=== PATIENT | female | born 1945 | race African-American/Black ===

== ENCOUNTER → 2017-12-03 | Outpatient (CLI) | payer MEDICARE, BC | END | disposition home or self-care (01) | LOC: NM 07:33 | DX: Z96.652 Presence of left artificial knee joint (principal); M54.9 Dorsalgia, unspecified | CPT/HCPCS: 72148; 78315; 96374; A9503 ==

== ENCOUNTER → 2018-06-23 | Outpatient (CLI) | payer MEDICARE, BC ==
[2018-06-03 15:00] VITALS: BP 135/75
[~2018-06-23] MED LIST: AMLO1CAP6 PO; ASPI325T11 PO; CELE200C PO; FERR325T14 PO; HYDR-2758 PO; HYDR-2762 PO; HYDR-971 PO; Hydrocodone/Acetaminophen PO; ONDA4TAB10 SL; OXYC-323 PO; TRAM50TA PO; WARF3TAB50 PO; Warfarin Sodium MC
--- NOTE | 2018-06-23 11:12 | RAD ---
EXAM: Chest, 2 views. HISTORY: Shortness of breath. COMPARISON: 06/02/2018 FINDINGS: Frontal and lateral views of the chest are obtained. There is stable diffuse increased interstitial opacity. There is no consolidation, pleural effusion or pneumothorax. There is stable cardiomegaly. IMPRESSION: Stable diffuse increased interstitial opacity suggesting trace interstitial infiltrate. Electronically signed by: Alla [place] MD (06/23/2018 11:08 AM) [place] [id number]
== END | disposition home or self-care (01) ==
LOC: RAD 10:40
PROVIDERS: ATTEND Family Medicine
DX: R91.8 Other nonspecific abnormal finding of lung field (principal); E66.01 Morbid (severe) obesity due to excess calories; I10 Essential (primary) hypertension; E78.00 Pure hypercholesterolemia, unspecified; Z86.73 Personal history of transient ischemic attack (TIA), and cerebral infarction without residual deficits; Z96.653 Presence of artificial knee joint, bilateral; Z87.11 Personal history of peptic ulcer disease; Z90.710 Acquired absence of both cervix and uterus; Z68.38 Body mass index [BMI] 38.0-38.9, adult; Z88.8 Allergy status to other drugs, medicaments and biological substances; Z88.5 Allergy status to narcotic agent; Z82.49 Family history of ischemic heart disease and other diseases of the circulatory system; Z80.0 Family history of malignant neoplasm of digestive organs
CPT/HCPCS: 71046

== ENCOUNTER 2018-12-19 06:34 | Emergency (ER) | payer MEDICARE, BC ==
[~2018-12-19] VITALS: Ht 165.1 cm; Wt 104.3 kg
[~2018-12-19 06:34] MED LIST changes: -HYDR-2758 PO; +HYDR-2761 PO; -HYDR-2762 PO; +HYDR-2765 PO; +HYDR-3164 PO; -HYDR-971 PO; -OXYC-323 PO; +OXYC1TAB15 PO
--- NOTE | 2018-12-19 07:03 | PHYS DOC ---
Past Medical History Past Medical History: Hypertension, TIA Additional Past Medical Histor: LIPOMA TUMOR AND REMOVAL Past Surgical History: Hysterectomy, Other Additional Past Surgical Histo: BILATERAL KNEE REPLACEMENTS Alcohol Use: None Drug Use: None Adult General Chief Complaint Chief Complaint: WEAKNESS/GENERALIZED HPI HPI Patient is a 73 year old female brought in by ambulance with lightheadedness she felt weak at 6 AM [place] she had a near syncope got a little sweaty no chest pain she feels better now she had a little bit of Sprite and last ate a turkey club sandwich last night apparently she was waiting for a ride home most of the night but could not get a taxi Review of Systems Review of Systems Constitutional: Denies fever or chills [] Eyes: Denies change in visual acuity, redness, or eye pain [] HENT: Denies nasal congestion or sore throat [] Respiratory: Denies cough or shortness of breath [] Integument: Denies rash or skin lesions [] Neurologic: Denies headache, focal weakness or sensory changes [] Endocrine: Frequent urination noted All other systems were reviewed and found to be within normal limits, except as documented in this note. Current Medications Current Medications Current Medications Medications (Trade) Dose Ordered Sig/Dasha Start Time Stop Time Status Last Admin Dose Admin Sodium Chloride 1,000 ml @ 1,000 mls/hr 1X ONCE 12/19/18 07:15 12/19/18 08:14 DC 12/19/18 07:27 1,000 MLS/HR Allergies Allergies Allergies Coded Allergies Type Severity Reaction Last Updated Verified tramadol Adverse Reaction Intermediate 07/16/16 Yes Physical Exam Physical Exam Constitutional: Well developed, well nourished, no acute distress, non-toxic appearance. [] HENT: Normocephalic, atraumatic, bilateral external ears normal, oropharynx moist, no oral exudates, nose normal. [] Eyes: PERRLA, EOMI, conjunctiva normal, no discharge. [] Neck: Normal range of motion, no tenderness, supple, no stridor. [] Cardiovascular:Heart rate regular rhythm, no murmur [] Lungs & Thorax: Bilateral breath sounds clear to auscultation [] Abdomen: Bowel sounds normal, soft, no tenderness, no masses, no pulsatile masses. [] Skin: Warm, dry, no erythema, no rash. [] Back: No tenderness, no CVA tenderness. [] Extremities: No tenderness, no cyanosis, no clubbing, ROM intact, no edema. [] Neurologic: Alert and oriented X 3, normal motor function, normal sensory function, no focal deficits noted. [] Psychologic: Affect normal, judgement normal, mood normal. [] Current Patient Data Vital Signs Vital Signs Date Time Temp Pulse Resp B/P (MAP) Pulse Ox O2 Delivery O2 Flow Rate FiO2 12/19/18 06:36 99.1 84 18 118/67 (84) 99 Room Air 99.1 Lab Values Laboratory Tests Test 12/19/18 07:17 12/19/18 08:05 White Blood Count 8.1 x10^3/uL (4.0-11.0) Red Blood Count 3.88 x10^6/uL (3.50-5.40) Hemoglobin 11.7 g/dL (12.0-15.5) L Hematocrit 35.3 % (36.0-47.0) L Mean Corpuscular Volume 91 fL (79-100) Mean Corpuscular Hemoglobin 30 pg (25-35) Mean Corpuscular Hemoglobin Concent 33 g/dL (31-37) Red Cell Distribution Width 14.6 % (11.5-14.5) H Platelet Count 278 x10^3/uL (140-400) Neutrophils (%) (Auto) 76 % (31-73) H Lymphocytes (%) (Auto) 13 % (24-48) L Monocytes (%) (Auto) 9 % (0-9) Eosinophils (%) (Auto) 1 % (0-3) Basophils (%) (Auto) 1 % (0-3) Neutrophils # (Auto) 6.1 x10^3uL (1.8-7.7) Lymphocytes # (Auto) 1.0 x10^3/uL (1.0-4.8) Monocytes # (Auto) 0.7 x10^3/uL (0.0-1.1) Eosinophils # (Auto) 0.1 x10^3/uL (0.0-0.7) Basophils # (Auto) 0.1 x10^3/uL (0.0-0.2) Sodium Level 143 mmol/L (136-145) Potassium Level 3.4 mmol/L (3.5-5.1) L Chloride Level 102 mmol/L (98-107) Carbon Dioxide Level 29 mmol/L (21-32) Anion Gap 12 (6-14) Blood Urea Nitrogen 23 mg/dL (7-20) H Creatinine 1.3 mg/dL (0.6-1.0) H Estimated GFR (Cockcroft-Gault) 48.9 BUN/Creatinine Ratio 18 (6-20) Glucose Level 135 mg/dL (70-99) H Calcium Level 9.4 mg/dL (8.5-10.1) Total Bilirubin 0.5 mg/dL (0.2-1.0) Aspartate Amino Transferase (AST) 13 U/L (15-37) L Alanine Aminotransferase (ALT) 15 U/L (14-59) Alkaline Phosphatase 105 U/L (46-116) Troponin I Quantitative < 0.017 ng/mL (0.000-0.055) Total Protein 9.1 g/dL (6.4-8.2) H Albumin 3.5 g/dL (3.4-5.0) Albumin/Globulin Ratio 0.6 (1.0-1.7) L Urine Collection Type Unknown Urine Color Yellow Urine Clarity Clear Urine pH 6.0 Urine Specific [place] 1.020 Urine Protein Negative mg/dL (NEG-TRACE) Urine Glucose (UA) Negative mg/dL (NEG) Urine Ketones (Stick) Negative mg/dL (NEG) Urine Blood Small (NEG) Urine Nitrite Negative (NEG) Urine Bilirubin Negative (NEG) Urine Urobilinogen Dipstick 1.0 mg/dL (0.2 mg/dL) Urine Leukocyte Esterase Small (NEG) Urine RBC Occ /HPF (0-2) Urine WBC 5-10 /HPF (0-4) Urine Squamous Epithelial Cells Many /LPF Urine Bacteria Moderate /HPF (0-FEW) Urine Hyaline Casts Few /HPF Urine Mucus Mod /LPF Laboratory Tests 12/19/18 07:17 Laboratory Tests 12/19/18 07:17 EKG EKG [] Interpretation Time: EKG shows a normal sinus rhythm rate of 76 there is a right bundle branch block pattern QRS 128 no definite STEMI was seen. Radiology/Procedures Radiology/Procedures [] Course & Med Decision Making Course & Med Decision Making Pertinent Labs and Imaging studies reviewed. (See chart for details) []Well-appearing female presenting with some lightheadedness [place] 16 [place]. I suspect this is related to some mild orthostasis we will get screening EKG troponin labwork hydrate and reassess patient did have some urinary frequency so we will check a UA as well lab patient is a much better in the emergency room be discharged with a prescription for Keflex return precautions discussed.s show possible mild uti Dragon Disclaimer Dragon Disclaimer This electronic medical record was generated, in whole or in part, using a voice recognition dictation system. Departure Departure Impression: Primary Impression: Dizziness Additional Impression: Urinary tract infection Disposition: HOME, SELF-CARE Condition: STABLE Referrals: Tanna RUTLEDGE MD (PCP) Scripts Cephalexin (CEPHALEXIN) 500 Mg Capsule 1 CAP PO QID, #40 CAP Prov: EPHRAIM OLEA MD 12/19/18 Problem Qualifiers EPHRAIM OLEA MD Dec 19, 2018 07:03
[2018-12-19] MEDS ORDERED: IV NORMAL SALINE 1000ML BAG 1,000 ML IV ONE (07:15)
[2018-12-19 07:27] LABS: BASO # 0.1 x10^3/uL (0.0-0.2); BASO % 1 % (0-3); EOS # 0.1 x10^3/uL (0.0-0.7); EOS % 1 % (0-3); HEMATOCRIT 35.3 % (36.0-47.0); HEMOGLOBIN 11.7 g/dL (12.0-15.5); LYMPH % 13 % (24-48); MEAN CORPUSCULAR HEMOGLOBIN 30 pg (25-35); MEAN CORPUSCULAR HGB CONC 33 g/dL (31-37); MEAN CORPUSCULAR VOLUME 91 fL (79-100); MONO # 0.7 x10^3/uL (0.0-1.1); MONO % 9 % (0-9); NEUT # 6.1 x10^3uL (1.8-7.7); NEUT % 76 % (31-73); PLATELET COUNT 278 x10^3/uL (140-400); RED BLOOD COUNT 3.88 x10^6/uL (3.50-5.40); RED CELL DISTRIBUTION WIDTH 14.6 % (11.5-14.5); WHITE BLOOD COUNT 8.1 x10^3/uL (4.0-11.0)
[2018-12-19 07:35] LABS: CALCIUM 9.4 mg/dL (8.5-10.1); CREATININE 1.3 mg/dL (0.6-1.0); GFR 48.9; POTASSIUM 3.4 mmol/L (3.5-5.1)
[2018-12-19 07:41] LABS: ALBUMIN 3.5 g/dL (3.4-5.0); ALBUMIN/GLOBULIN RATIO 0.6 (1.0-1.7); TOTAL BILIRUBIN 0.5 mg/dL (0.2-1.0); TOTAL PROTEIN 9.1 g/dL (6.4-8.2)
[2018-12-19 08:17] LABS: BILIRUBIN,URINE NEGATIVE (NEG); CLARITY,URINE CLEAR; COLOR,URINE YELLOW; NITRITE,URINE NEGATIVE (NEG); PROTEIN,URINE NEGATIVE (NEG-TRACE)
[2018-12-19 08:41] LABS: HYALINE CASTS, URINE FEW /HPF; SQUAMOUS EPITHELIAL CELL,UR MANY /LPF
[2018-12-19 08:42] LABS: BACTERIA,URINE MODERATE /HPF (0-FEW); RBC,URINE OCC /HPF (0-2)
[2018-12-19 09:30] VITALS: BP 111/70
[2018-12-19] MEDS ORDERED: CEPH500C PO (09:34)
--- NOTE | 2018-12-20 14:07 | EKG ---
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
== END 2018-12-19 09:57 | disposition home or self-care (01) ==
LOC: ER 06:34
DX: R42 Dizziness and giddiness (principal); N39.0 Urinary tract infection, site not specified; I10 Essential (primary) hypertension; Z86.73 Personal history of transient ischemic attack (TIA), and cerebral infarction without residual deficits; Z90.710 Acquired absence of both cervix and uterus; Z88.6 Allergy status to analgesic agent
CPT/HCPCS: 36415; 80053; 81001; 84484; 85025; 87086; 93005; 96360; 99284; J7030

== ENCOUNTER → 2019-05-04 | Outpatient (CLI) | payer MEDICARE, BC ==
[2019-03-30 13:08] VITALS: BP 184/81
[~2019-05-04] MED LIST changes: +CEPH500C PO; +METH-37 PO
--- NOTE | 2019-05-04 16:23 | KCIC ---
STUDY: MRI of the right shoulder without contrast INDICATION: Right shoulder pain. COMPARISON: None. TECHNIQUE: Multiplanar MR imaging of the right shoulder performed without the use of intravenous or intra-articular contrast. FINDINGS: Despite repeat imaging attempts, the study is degraded by motion artifact. AC joint: Moderate AC joint arthrosis. Some inferiorly directed spurring off of the distal clavicle without mass effect on the subjacent rotator cuff. Small volume fluid and some edema-like signal of the subacromial subdeltoid bursa. Rotator cuff: Supraspinatus tendinosis with low to intermediate grade articular sided tearing of the more anterior fibers extending from just medial to the footprint towards the myotendinous junction. The infraspinatus and teres minor are intact. The subscapularis is intact. Maintained rotator cuff musculature bulk. Labrum: Portions of the glenoid labrum are blunted with probable degenerative tearing from superior to posterior/superior. Long head biceps tendon: Tendinosis of the intra-articular long head biceps tendon approaching the groove entrance. Cartilage: Diffuse thinning of the glenoid and humeral head articular cartilage. Bones: Heterogeneous marrow signal without aggressive features. Resorptive cystic changes at the greater tuberosity. No acute fracture. Miscellaneous: No axillary adenopathy. Moderate volume shoulder joint effusion with synovitis. There may be some loose bodies within the axillary pouch. Synovitis of the long head biceps tendon sheath. Impression: 1. Supraspinous tendinosis with low to intermediate grade articular sided tearing of the more anterior fibers extending from medial to the footprint towards the myotendinous junction. 2. 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 Synovitis of the long head biceps tendon sheath also noted. Blunting of the glenoid labrum with probable degenerative tearing from superior to posterior/superior. 3. Tendinosis of the long head biceps as it approaches the groove entrance. 4. Moderate AC joint arthrosis and mild subacromial subdeltoid bursitis. Electronically signed by: NIESHA NOVOA MD (05/04/2019 4:21 PM) [id number]
== END | disposition home or self-care (01) ==
LOC: KCIC MRI 08:42
PROVIDERS: ATTEND Orthopaedic Surgery
DX: S46.011A Strain of muscle(s) and tendon(s) of the rotator cuff of right shoulder, initial encounter (principal); M19.011 Primary osteoarthritis, right shoulder; M25.411 Effusion, right shoulder; M65.811 Other synovitis and tenosynovitis, right shoulder; M24.011 Loose body in right shoulder; M75.51 Bursitis of right shoulder; X58.XXXA Exposure to other specified factors, initial encounter; Y93.89 Activity, other specified; Y92.89 Other specified places as the place of occurrence of the external cause; Y99.8 Other external cause status
CPT/HCPCS: 73221

== ENCOUNTER → 2021-01-01 | Outpatient (CLI) | payer MEDICARE, BC ==
[2019-03-30 13:08] VITALS: BP 184/81
--- NOTE | 2021-01-02 16:26 | RAD ---
DATE: 01/01/2021 10:51 AM EXAM: MAMMO RAQUEL SCREENING BILATERAL HISTORY: Screening COMPARISON: None. This is a baseline. Bilateral CC and MLO views of the breasts were performed. Bilateral breast tomosynthesis was performed in CC and MLO projections. This study was interpreted with the benefit of Computerized Aided Detection (CAD). FINDINGS: Breast Density: SCATTERED The breast parenchyma shows scattered fibroglandular densities. Breast parenchyma level B Nodular parenchymal pattern compatible benign cystic change is present. No suspicious masses, microcalcifications or architectural distortion is present to suggest malignancy in either breast. The visualized axillae are unremarkable. IMPRESSION: No mammographic evidence of malignancy. BI-RADS CATEGORY: 2 BENIGN FINDING(S) RECOMMENDED FOLLOW-UP: 12M 12 MONTH FOLLOW-UP Annual screening mammography is recommended, unless clinically indicated sooner based on symptoms or change in physical exam. PQRS compliance statement: Patient information was entered into a reminder system with a target due date for the next mammogram. Mammography is a sensitive method for finding small breast cancers, but it does not detect them all and is not a substitute for careful clinical examination. A negative mammogram does not negate a clinically suspicious finding and should not result in delay in biopsying a clinically suspicious abnormality. "Our facility is accredited by the [employer] Mammography Program."
== END ==
LOC: MAMMO 10:41
PROVIDERS: ATTEND Family Medicine
DX: Z12.31 Encounter for screening mammogram for malignant neoplasm of breast (principal)
CPT/HCPCS: 77063; 77067

== ENCOUNTER 2021-03-29 12:55 | Emergency (ER) | payer MEDICARE, BC ==
[~2021-03-29] VITALS: Ht 165.1 cm; Wt 100.0 kg
[2021-03-29] MEDS ORDERED: DEXAMETHASONE 4 MG TABLET PO ONE (15:45)
[2021-03-29 15:48] VITALS: BP 184/81
--- NOTE | 2021-03-29 16:05 | RAD ---
XR CHEST 2V CLINICAL INDICATIONS: Cough COMPARISON: June 23, 2018. Findings: No acute lung infiltrate or pleural effusion or pulmonary edema or lung mass or pneumothora x is seen. Mild The heart size, pulmonary vasculature, mediastinum and both lisbeth are stable. The osse ous structures appear intact. IMPRESSION: No acute radiographic abnormality is seen. Electronically signed by: Israel Vela MD (03/29/2021 4:03 PM) [id number]
[2021-03-29] MEDS ORDERED: ALBU2.5V8 IH (16:45)
[2021-03-29] MEDS ORDERED: BENZ100C PO (16:45)
[2021-03-29] MEDS ORDERED: PRED20TA PO (16:45)
--- NOTE | 2021-03-29 16:45 | PHYS DOC ---
Past Medical History Past Medical History: Hypertension, TIA Additional Past Medical Histor: LIPOMA TUMOR AND REMOVAL Past Surgical History: Hysterectomy, Other Additional Past Surgical Histo: BILATERAL KNEE REPLACEMENTS Smoking Status: Former Smoker Alcohol Use: None Drug Use: None General Adult EDM: Chief Complaint: COUGH HPI: HPI: Patient is a 75 year old [f__sex] who presents with [] Review of Systems: Review of Systems: Constitutional: Denies fever or chills Eyes: Denies redness or eye pain HENT: Denies nasal congestion or sore throat Respiratory: Reports cough Cardiovascular: Denies chest pain or palpitations GI: Denies abdominal pain, nausea, or vomiting : Denies dysuria or hematuria Musculoskeletal: Denies back pain or joint pain Integument: Denies rash or skin lesions Neurologic: Denies headache, focal weakness or sensory changes Complete systems were reviewed and found to be within normal limits, except as documented in this note. Heart Score: C/O Chest Pain: N/A Current Medications: Current Medications Medications (Trade) Dose Ordered Sig/Dasha Start Time Stop Time Status Last Admin Dose Admin Dexamethasone (Decadron) 10 mg 1X ONCE 03/29/21 15:45 03/29/21 15:46 DC 03/29/21 15:57 10 MG Allergies: Allergies: Allergies Coded Allergies Type Severity Reaction Last Updated Verified tramadol Adverse Reaction Intermediate 07/16/16 Yes Physical Exam: PE: Constitutional: Well developed, well nourished, no acute distress, non-toxic appearance HENT: Normocephalic, atraumatic Eyes: PERRL, EOMI, conjunctiva normal, no discharge Neck: Normal range of motion, no tenderness, supple Lungs & Thorax: No respiratory distress, equal chest rise and fall Abdomen: Soft, no tenderness Skin: Warm, dry, no erythema, no rash Back: No tenderness, no CVA tenderness Extremities: No tenderness, ROM intact, no edema Neurologic: Alert and oriented X 3, normal motor function, normal sensory function, no focal deficits noted Psychologic: Affect normal, judgment normal Current Patient Data: Vital Signs: Vital Signs Date Time Temp Pulse Resp B/P (MAP) Pulse Ox O2 Delivery O2 Flow Rate FiO2 03/29/21 15:48 98.9 90 18 184/81 (115) 98 Room Air 98.9 EKG: EKG: [] Radiology/Procedures: Radiology/Procedures: PROCEDURE: CHEST PA & LATERAL XR CHEST 2V CLINICAL INDICATIONS: Cough COMPARISON: June 23, 2018. Findings: No acute lung infiltrate or pleural effusion or pulmonary edema or lung mass or pneumothorax is seen. Mild The heart size, pulmonary vasculature, mediastinum and both lisbeth are stable. The osseous structures appear intact. IMPRESSION: No acute radiographic abnormality is seen. Electronically signed by: Israel Vela MD (03/29/2021 4:03 PM) [id number] Course & Med Decision Making: Course & Med Decision Making Pertinent Labs and Imaging studies reviewed. (See chart for details) [] Dragon Disclaimer: Dragon Disclaimer: This electronic medical record was generated, in whole or in part, using a voice recognition dictation system. Departure Departure Impression: Primary Impression: Bronchitis Disposition: HOME / SELF CARE / HOMELESS Condition: STABLE Referrals: Tanna RUTLEDGE MD (PCP) Patient Instructions: Acute Bronchitis, Zsan-uv-Onmc Scripts Prednisone (PREDNISONE) 20 Mg Tablet 2 TAB PO DAILY for 4 Days, #8 TAB Start this prescription tomorrow, Friday03/30/21 Prov: MK LEYVA DO 03/29/21 Benzonatate (TESSALON PERLE) 100 Mg Capsule 1 CAP PO TID PRN for COUGH, #30 CAP Prov: MK LEYVA DO 03/29/21 Albuterol Sulfate (PROAIR HFA INHALER) 8.5 Gm Hfa.aer.ad 2 PUFF IH PRN Q4-6HRS PRN for wheezing, #1 INHALER 0 Refills Prov: MK LEYVA DO 03/29/21 MK LEYVA DO Mar 29, 2021 16:45
== END 2021-03-29 17:20 | disposition home or self-care (01) ==
LOC: ER 12:55
DX: J40 Bronchitis, not specified as acute or chronic (principal); I10 Essential (primary) hypertension; Z86.73 Personal history of transient ischemic attack (TIA), and cerebral infarction without residual deficits; Z88.6 Allergy status to analgesic agent
CPT/HCPCS: 71046; 99283